=== PATIENT | female | born 1935 | race Caucasian/White ===

== ENCOUNTER 2017-01-12 01:42 | Emergency (ER) | payer MEDICARE, BC ==
--- NOTE | 2017-01-12 04:09 | ER ---
ADMIT: 01/12/2017 RM/LOC: ER [facility] MR#: [id number] [address] [id number] [place] [address] [place] [address] Emergency Room Report SEX: F AGE: 81 : 1935 DATE: 01/12/2017 TIME: 0142 hours. Please refer to my T-sheet for complete H and P. HISTORY OF PRESENT ILLNESS: Briefly, the patient is an 81-year-old who comes in with a rash, started yesterday. She did start a new Dove bath soap. She thinks that could have caused it. No trouble swallowing or breathing. PHYSICAL EXAMINATION: VITAL SIGNS: Stable. HEENT: Throat is open. LUNGS: Clear. SKIN: Shows diffuse urticarial reaction. EMERGENCY ROOM COURSE: Decadron 10 IM was given, Benadryl 25 p.o. She had a ride home, ready for discharge. ASSESSMENT: Acute hives. PLAN: Prednisone 20 b.i.d. for 4 days. Stop Dove. Return if worse. Follow up with Dr. Bonner as needed. Arnoldo Sanz MD/ sana JOB #: [id number] CC: Arnoldo Sanz MD, Attending Physician Jeanna Bonner MD, Family Physician
== END 2017-01-12 02:30 | disposition home or self-care (01) ==
LOC: ER 01:42
DX: L50.0 Allergic urticaria (principal); F17.210 Nicotine dependence, cigarettes, uncomplicated; Z90.49 Acquired absence of other specified parts of digestive tract